=== PATIENT | male | born 1945 | race Caucasian/White ===

== ENCOUNTER → 2019-02-26 | Outpatient (CLI) | payer MEDICARE ==
[~2019-02-26] MED LIST: ASPIR 8181 MG PO; CARVEDILOL3.125 MG PO; FUROSEMIDE40 MG PO; PROAIR HFA INH8.5 GM INH; SIMVASTATIN20 MG PO
== END ==
LOC: CARD 14:38
PROVIDERS: ATTEND Thoracic Surgery (Cardiothoracic Vascular Surgery)
DX: I65.23 Occlusion and stenosis of bilateral carotid arteries (principal)
CPT/HCPCS: 93880

== ENCOUNTER → 2019-03-02 | Day surgery (SDC) | payer MEDICARE ==
--- NOTE | 2019-02-28 12:11 | Diagnostic Imaging Report ---
EXAMINATION: PA and lateral views of the chest. COMPARISON: None CLINICAL HISTORY: Preoperative exam DISCUSSION: The lungs are hyperinflated with increased AP diameter of the chest. No focal airspace consolidation, pleural effusion, or pneumothorax. Coarse reticular prominence of the pulmonary interstitium. Borderline enlargement of the cardiac silhouette with atherosclerotic calcification of the thoracic aorta. No acute osseous abnormality. IMPRESSION: Pulmonary hyperinflation compatible with COPD/emphysema. Reticular interstitial opacities likely reflect age-related fibrotic changes. Borderline cardiomegaly. Signed by: Dr. Pedro Escobar M.D. on 02/28/2019 12:08 PM
[2019-02-28 12:28] LABS: BASOPHILS # (AUTO) 0.1 (0.0-0.1); BASOPHILS % 0.7 % (0.0-1.0); EOSINOPHILS # (AUTO) 1.6 (0.0-0.4); EOSINOPHILS % 15.6 % (0.0-6.0); HEMATOCRIT 47.1 % (38.2-49.6); LYMPHOCYTES # (AUTO) 2.5 (1.0-3.2); MEAN CORPUSCULAR HEMOGLOBIN 29.2 pg (28-32); MEAN CORPUSCULAR HGB CONC 31.8 g/dL (31-35); MEAN CORPUSCULAR VOLUME 91.6 fL (81-99); MONOCYTES # (AUTO) 0.4 (0.2-0.8); MONOCYTES % 4.4 % (4.4-11.3); NEUTROPHILS # (AUTO) 5.4 (2.1-6.9); PLATELET COUNT 196 x10e3/uL (140-360); RED BLOOD COUNT 5.14 x10e6/uL (4.3-5.7); RED CELL DISTRIBUTION WIDTH 15.9 % (11.7-14.4)
[2019-02-28 12:36] LABS: INR 1.05; PROTHROMBIN TIME 14.2 seconds (11.9-14.5)
[2019-02-28 12:37] LABS: PARTIAL THROMBOPLASTIN TIME 37.9 seconds (23.8-35.5)
[2019-02-28 12:45] LABS: ANION GAP 13.2 mmol/L (8-16); CALCIUM 9.8 mg/dL (8.4-10.2); CREATININE, SERUM 1.19 mg/dL (0.72-1.25); POTASSIUM 4.2 mmol/L (3.5-5.1)
[2019-02-28 14:07] LABS: EOSINOPHILS % (MANUAL) 12 % (0-7); LYMPHOCYTES % (MANUAL) 29 % (19-48); MONOCYTES % (MANUAL) 9 % (3.4-9.0); NEUTROPHILS % (MANUAL) 50 % (40-74)
[2019-02-28 14:11] LABS: PLATELET ESTIMATE ADEQUATE; PLATELET MORPHOLOGY COMMENT NORMAL; RBC MORPHOLOGY COMMENT NORMAL
[2019-02-28 14:12] LABS: ANISOCYTOSIS SLIGHT
[~2019-03-02] MED LIST changes: +CEFAZOLIN SOD 1 GM VIAL ONE; +DEXAMETHASONE SOD PHOS INJ 4 MG/ML VIAL ONE; +FENTANYL CITRATE/PF 100MCG/2 ML INJ ONE; +LIDOCAINE HCL 2% LOCAL INJ 5 ML SDV VIAL INJ ONE; +LISINOPRIL10 MG PO; +MIDAZOLAM HCL 2 MG/2 ML VIAL ONE; +MUPIROCIN 2% OINT 22 GM TUBE ONE; +ONDANSETRON HCL INJ 2MG/ML 2ML 2 MG/ML VIAL ONE; +PHENYLEPHRINE HCL 1% 10 MG/ML VIAL ONE; +PROPOFOL IV EMULSION 10 MG/ML 20 ML VIAL ONE; +ROCURONIUM BROMIDE 10 MG/ML 5ML VIAL ONE; +SEVOFLURANE INHAL SOLN 250 ML PEN BTL ONE
--- OUTSIDE RECORDS SUMMARY | 2019-03-02 10:57 | XMS REPORT ---
Author [facility] Address Unknown Phone Unavailable Care Team Providers Care Cigar Making Supervisor Name Role Phone RAFAEL BHATIA Unavailable Unavailable Problems This patient has no known problems. Allergies, Adverse Reactions, Alerts This patient has no known allergies or adverse reactions. Medications This patient has no known medications. Results Test Description Test Time Test Comments Text Results Atomic Results Result Comments CHEST 2 VIEWS 2019-02-28 12:06:00 [place] [address] Patient Name: YULISA WILLIAMSON III MR #: [id number] : 1945 Age/Sex: 74/M Req #: [id number] Adm Physician: Ordered by: RAFAEL BHATIA MD Report #: [id number] Location: OR Room/Bed: Procedure: [id number] DX/CHEST 2 VIEWS Exam Date: Exam Time: REPORT STATUS: Signed EXAMINATION: PA and lateral views of the chest. COMPARISON: None CLINICAL HISTORY: Preoperative exam DISCUSSION: The lungs are hyperinflated with increased AP diameter of the chest. No focal airspace consolidation, pleural effusion, or pneumothorax. Coarse reticular prominence of the pulmonary interstitium. Borderline enlargement of the cardiac silhouette with atherosclerotic calcification of the thoracic aorta. No acute osseous abnormality. IMPRESSION: Pulmonary hyperinflation compatible with COPD/emphysema. Reticular interstitial opacities likely reflect age-related fibrotic changes. Borderline cardiomegaly. Signed by: Dr. Itz Alvarado M.D. on 02/28/2019 12:08 PM Dictated By: ITZ ALVARADO MD 07 Transcribed By: LEA on 02/28/191207 COPY TO: RAFAEL BHATIA MD
--- NOTE | 2019-03-02 15:48 | Diagnostic Imaging Report ---
Examination: Single AP view of the chest. COMPARISON: 02/28/2019 INDICATION: Status post mediastinoscopy DISCUSSION: Interval placement of a right internal jugular central venous catheter. The tip projects over the mid superior vena cava. The lungs remain well-inflated and with coarse reticular opacities. No new consolidation or pneumothorax. Cardiomediastinal contour is stable when accounting for differences in technique. No acute osseous abnormalities. IMPRESSION: Interval placement of right internal jugular central venous catheter, positioned as above. No pneumothorax or julio pneumomediastinum status post mediastinoscopy. Signed by: Dr. Pedro Escobar M.D. on 03/02/2019 3:44 PM
[2019-03-02 16:30] VITALS: BP 94/63
--- NOTE | 2019-03-05 16:28 | Operative Report ---
DATE OF PROCEDURE: 03/02/2019 SURGEON: Jeffry Cervantes MD PREOPERATIVE DIAGNOSES: 1. Mediastinal adenopathy. 2. Unexplained 20 lb weight loss. POSTOPERATIVE DIAGNOSES: 1. Mediastinal adenopathy. 2. Unexplained 20 lb weight loss. TITLE OF OPERATION: Cervical mediastinoscopy. DESCRIPTION OF OPERATION: After the satisfactory accomplishment of general anesthesia, the patient's neck and chest were prepped and draped in sterile fashion. A transverse incision was made just above the sternal notch. The incision was carried down through the muscles and fascia to the anterior surface of the trachea. A plane of dissection was developed on the anterior surface of the trachea, and this plane of dissection was carried distally down to the level of the edie. At this point, a mediastinoscope was introduced. Careful inspection of both the right and left carlitos revealed no impressive adenopathy and no pathology other than a very thin pleural wall. The mediastinoscope was then gently withdrawn and in the process, the tissues anterior to the trachea were carefully inspected. Several large lymph nodes were present in this tissue approximately care home between the edie and the skin incision. Several of these large lymph nodes were removed as permanent pathology specimens. All bleeding points were cauterized, ligated or oversewn. The wound was then thoroughly irrigated with antibiotic solutions and closed in layers with interrupted 2-0 Vicryl for the deep tissues and Monocryl subcuticular stitches for the skin. The patient tolerated the procedure well and was returned to the recovery room in good condition. Jeffry Cervantes MD [facility] [place]/ARETHAL /[id number]
== END | disposition home or self-care (01) ==
LOC: OR 10:54
PROVIDERS: ATTEND Thoracic Surgery (Cardiothoracic Vascular Surgery)
DX: R59.0 Localized enlarged lymph nodes (principal); D72.822 Plasmacytosis; R63.4 Abnormal weight loss; J44.9 Chronic obstructive pulmonary disease, unspecified; I11.0 Hypertensive heart disease with heart failure; I50.9 Heart failure, unspecified; E11.9 Type 2 diabetes mellitus without complications; I25.10 Atherosclerotic heart disease of native coronary artery without angina pectoris; F17.210 Nicotine dependence, cigarettes, uncomplicated; Z01.810 Encounter for preprocedural cardiovascular examination; Z01.812 Encounter for preprocedural laboratory examination; Z01.818 Encounter for other preprocedural examination; Z99.81 Dependence on supplemental oxygen; Z79.82 Long term (current) use of aspirin
CPT/HCPCS: 36415 ×2; 39402; 71045; 71046; 80048; 82948; 85025; 85610; 85730; 86850; 86900; 86920; 88305; 93005; J0690; J1100; J2001; J2250; J2370; J2405; J2704; 88304

== ENCOUNTER 2019-11-22 06:15 | Observation (INO) | payer MEDICARE ==
[2019-11-20 12:32] LABS: BASOPHILS % 0.6 % (0.0-1.0); EOSINOPHILS # (AUTO) 0.3 (0.0-0.4); EOSINOPHILS % 5.1 % (0.0-6.0); HEMATOCRIT 42.9 % (38.2-49.6); HEMOGLOBIN 13.9 g/dL (14.0-18.0); LYMPHOCYTES # (AUTO) 1.5 (1.0-3.2); LYMPHOCYTES % 29.3 % (18.0-39.1); MEAN CORPUSCULAR HEMOGLOBIN 32.5 pg (28-32); MEAN CORPUSCULAR HGB CONC 32.4 g/dL (31-35); MEAN CORPUSCULAR VOLUME 100.2 fL (81-99); MONOCYTES # (AUTO) 0.3 (0.2-0.8); MONOCYTES % 6.1 % (4.4-11.3); NEUTROPHILS % 58.5 % (38.7-80.0); PLATELET COUNT 134 x10e3/uL (140-360); RED BLOOD COUNT 4.28 x10e6/uL (4.3-5.7); RED CELL DISTRIBUTION WIDTH 14.1 % (11.7-14.4)
[2019-11-20 12:41] LABS: INR 1.09; PROTHROMBIN TIME 14.8 seconds (11.9-14.5)
[2019-11-20 12:46] LABS: ANION GAP 11.6 mmol/L (8-16); BLOOD UREA NITROGEN 18 mg/dL (7-26); BUN/CREATININE RATIO 17 (6-25); CALCIUM 8.8 mg/dL (8.4-10.2); CARBON DIOXIDE 34 mmol/L (22-29); CHLORIDE 97 mmol/L (98-107); CREATININE, SERUM 1.04 mg/dL (0.72-1.25); EST GLOMERULAR FILTRATION RATE > 60 ML/MIN (60-); GLUCOSE 94 mg/dL (74-118); POTASSIUM 3.6 mmol/L (3.5-5.1); SODIUM 139 mmol/L (136-145)
[2019-11-22] VITALS (19 sets, daily range): BP systolic 102–130; BP diastolic 58–88
[~2019-11-22] VITALS: Ht 172.7 cm; Wt 59.0 kg
[~2019-11-22 06:15] MED LIST changes: -CEFAZOLIN SOD 1 GM VIAL ONE; -DEXAMETHASONE SOD PHOS INJ 4 MG/ML VIAL ONE; -FENTANYL CITRATE/PF 100MCG/2 ML INJ ONE; -LIDOCAINE HCL 2% LOCAL INJ 5 ML SDV VIAL INJ ONE; -MIDAZOLAM HCL 2 MG/2 ML VIAL ONE; -MUPIROCIN 2% OINT 22 GM TUBE ONE; -ONDANSETRON HCL INJ 2MG/ML 2ML 2 MG/ML VIAL ONE; -PHENYLEPHRINE HCL 1% 10 MG/ML VIAL ONE; -PROPOFOL IV EMULSION 10 MG/ML 20 ML VIAL ONE; -ROCURONIUM BROMIDE 10 MG/ML 5ML VIAL ONE; -SEVOFLURANE INHAL SOLN 250 ML PEN BTL ONE; +TYLENOL WITH C1 EACH PO; +ZOLPIDEM TARTRAT5 MG PO
[2019-11-22] MEDS ORDERED: FENTANYL CITRATE/PF 100MCG/2 ML INJ ONE (07:24)
[2019-11-22] MEDS ORDERED: MIDAZOLAM HCL 2 MG/2 ML VIAL ONE ×2 (07:24→09:23)
[2019-11-22] MEDS ORDERED: SODIUM CHLORIDE 0.9% 50ML 50 ML ONE (07:25)
[2019-11-22] MEDS ORDERED: BACITRACIN 50,000 UNIT VIAL ONE (07:25)
[2019-11-22] MEDS ORDERED: CEFAZOLIN SOD 1 GM VIAL ONE (07:26)
[2019-11-22] MEDS ORDERED: LIDOCAINE HCL 2% LOCAL 20 ML VIAL ONE (07:26)
[2019-11-22] MEDS ORDERED: VANCOMYCIN 1GM/NS 250 ML 250 ML ONE (07:26)
[2019-11-22] MEDS ORDERED: SODIUM CHLORIDE 0.9% 500ML 500 ML ONE (07:26)
[2019-11-22] MEDS ORDERED: SODIUM CHLORIDE 0.9% 1000ML 2,000 ML ONE (07:26)
--- NOTE | 2019-11-22 09:50 | NUR ---
0950amRECEIVING NOTE [employer] [employer]............................................................... Bedside report received from RN. Identifierx2. Alert oriented and appropriate, PERRLA, respirations even and unlabored to room air. Pulses x4 extremities equal and strong. Pedal pulses PT/DP X4 Cap fill brisk < 3 sec. BIVAD device Tel Observation with tele-tracker bed order in place and Jessica,Rn House Supv. notified of bed necessity. Left shoulder dressing intact NO gross issues pain,pallor,pressure or dysrhythmia. Stat CXR done. Orderlord notified and will interrogate device prior to dc tomorrow am. Friend has original prescription for dc meds and will drop off to pharmacy tonight for pickup of pt in am when he arrives for pickup of Pt. Pt and significant friend inserviced on importance of sling and purpose and [facility] to discuss further in am console to be used by person at home. Skin warm and dry integrity appears D/I, IV 20g to left hand clamped, presents healthy w/o s/s of infiltration or complaint. Abdomen soft and supple. pt offered toileting, denies need to urinate or defecate. No personal affects with patient. Friend at bedside. Pt and family verbalizes understanding of POC. Currently w/o complaint of pain or need.lucas/jay jay
--- NOTE | 2019-11-22 09:55 | NUR ---
0955a Pt in CCL Rec #[address] Educated pt and Familia, significant other at bedside to keep arm in sling and take prescribed me by Md . Nurse reinforced importance to f/o with Md for recheck , Familia will fill prescribed meds and knows importance of completion of medication antibiotic. Friend took prescription to fill for him to pharmacy tonight and would like to be call 1hr prior to dc in am. lucas/rn
--- NOTE | 2019-11-22 11:11 | Diagnostic Imaging Report ---
EXAM: CHEST SINGLE (PORTABLE) DATE: 11/22/2019 10:35 AM INDICATION: Pacemaker placement COMPARISON: 03/02/2019 IMPRESSION: There has been interval placement of a left-sided ICD with subclavian coursing leads identified extending to the heart. There is no evidence for pneumothorax. The trachea is midline. The lungs are symmetrically expanded without evidence for large focal consolidation or significant pleural effusion. The cardiac silhouette remains prominent. Mediastinal contours are unremarkable. No acute osseous abnormality is identified. Signed by: Dr. Naga Cabrera MD on 11/22/2019 11:08 AM
--- NOTE | 2019-11-22 13:45 | NUR ---
3678 Pt was found by staff member sitting on side of bed with arm out of sling. Reinforced importance to keep arm in sling till prescribed time by Harry COHN. Rationale was given pt appeared to understand reinforcement. ds/rn
--- NOTE | 2019-11-22 14:00 | NUR ---
1345p reachieved room notification Phoned report to Cortes Hines. Rm 203 Tele observation per phone. 1400p Transferred via bed with all belongings as well as [place] console equipment to floor care No gross issues pain,pallor,pressure or dysrhythmia in atrial paced rhythm 1:1 stable vs and denies pain. Pt tolerating po intake,aware of importance of calling for help to ambulated to bathroom and arm sling must remain on. Left room with RN at bedside call light at bedside,bed brakes in place and bed in low position.Report given to tele-room and handoff com.
--- NOTE | 2019-11-22 14:05 | NUR ---
ARRIVED TO UNIT VIA BED. ALERT AND ORIENTED. IN NO APPARENT DISTRESS. ABLE TO MAKE NEEDS KNOWN. LEFT SHOULDER PRESSURE DRESSING CDI. HEART PACED AT 1005 1 TO 1. PATIENT CLAIMS TO NOT KNOW HIS PAST MEDICAL HISTORY OR WHAT MEDICATIONS HE TAKES DAILY, AND IS A POOR HISTORIAN. STATES HE HAS NOT HAS THE FLU OR PNEUMONIA VACC. STATES HE IS NOT HAPPY WITH HAVING TO STQAY OVERNIGHT OR BEING "TIED DOWN" WHILE IN THE HOSPITAL
[2019-11-22] MEDS ORDERED: ALBUTEROL SULFATE HFA 8GM INHALATION AEROSOL INH PRN (16:00)
[2019-11-22] MEDS ORDERED: ACETAMINOPHEN/CODEINE 300MG - 30MG TAB PO PRN (16:00)
[2019-11-22] MEDS ORDERED: FUROSEMIDE 40 MG TAB PO SCH (17:00)
[2019-11-22] MEDS ORDERED: CARVEDILOL 3.125 MG TAB PO SCH (17:00)
--- NOTE | 2019-11-22 17:50 | NUR ---
STATED HE WAS HUNGRY AND APPRECIATED THE FOOD. IN A BETTER DISPOSITION. WALKED IN ROOM WITH STANDBY ASSIST FOR SAFETY. GIVEN WARM BLANKETS AFTER THE MEAL AND NOW HE STATES HE IS HAPPIER AND FEELS BETTER. WILL CONTINUE TO MONITOR COMPLIANT WITH ARM SLING AND CALLING FOR ASSISTANCE
[2019-11-22] MEDS ORDERED: SIMVASTATIN 20 MG TAB PO SCH (21:00)
--- NOTE | 2019-11-22 23:52 | Operative Report ---
DATE OF PROCEDURE: 11/22/2019 SURGEON: Joseph Bernard MD PREPROCEDURE DIAGNOSES: 1. 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 2. Congestive heart failure, class 3. 3. Left bundle branch block. POSTPROCEDURE DIAGNOSES: 1. 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 2. Congestive heart failure, class 3. 3. Left bundle branch block. ESTIMATED BLOOD LOSS: 5 mL. COMPLICATIONS: None. PROCEDURES PERFORMED: 1. Biventricular cardiac defibrillator placement. 2. Moderate sedation. Moderate conscious sedation was provided under my direct supervision by a sedation trained nurse. Sedation approximate time 60 minutes. Versed and fentanyl. There were no complications. See sedation form for details. DESCRIPTION OF PROCEDURE: After informed consent was obtained, the patient was brought to the electrophysiology laboratory in a fasting, nonsedated state. The area over his chest was prepped and draped in the usual sterile fashion. Moderate sedation and prophylactic antibiotics were given. 1% lidocaine was used as local anesthetic and a 3-cm skin incision was made in the left subclavicular area. Electrocautery sharp and blunt dissection were used to bridge the muscular fascia and a pocket was created for event implantation of the device. Vascular access was obtained x3 in the left axillary vein using the modified Seldinger technique under fluoroscopic guidance. Three sheaths were placed. Ventricular lead advanced to the RV apex, R-wave 18, pacing 0.4 at 0.4, impedance 500. Then, coronary sinus was cannulated using AL2 catheter and Parth wire. Coronary sinus angiogram demonstrated a high lateral branch successfully cannulated. The patient's threshold there was 2.5 at 0.4. No phrenic stimulation. Then, the atrial lead to the right atrial appendage P-wave 3, pacing 0.4 at 0.4, impedance 900. Sheaths were removed from the body. Leads were secured to fascia using Ethibond. Pocket was irrigated with antibiotic solution using the pulse second vp hr assessment. Hemostasis was meticulous. Leads were connected to the device and entire ICD system placed in the pocket. Incision was closed using absorbable sutures and Dermabond. The patient tolerated the procedure well. Procedure was incomplete. Of note, we put antibiotic powder, vancomycin inside the pocket. SUMMARY OF HARDWARE IMPLANTED: 1. The new defibrillator is [employer], serial, #[id number]. 2. The atrial lead is [employer] [id number]. 3. The right ventricular lead is [employer] [id number]. 4. The left ventricular lead is [employer] [id number]. IMPRESSION: Successful biventricular cardiac defibrillator placement via left axillary vein. PLAN: 1. Routine postop monitoring on telemetry bed. 2. Chest x-ray. 3. Follow up in 2 weeks. MD CLARA Kelly/MODL /[id number]
[2019-11-23 00:12] VITALS: BP 106/67
[2019-11-23 04:00] VITALS: BP 117/72
--- NOTE | 2019-11-23 07:53 | NUR ---
Patient is asking when he is leaving the hospital. Paged Dr. Gray to see if patient will be discharging today. Waiting examination supervisor back
[2019-11-23 07:57] VITALS: BP 121/75
--- NOTE | 2019-11-23 08:00 | NUR ---
Per Dr. Gray after [employer] comes and checks the patient's device he can go home.
[2019-11-23] MEDS ORDERED: LISINOPRIL 10 MG TAB PO SCH (09:00)
[2019-11-23] MEDS ORDERED: ASPIRIN 81 MG CHEW TAB PO SCH (09:00)
--- NOTE | 2019-11-23 09:00 | NUR ---
Spoke to Vilma with [employer] , she said she was here earlier this AM and checked the device and patient is OK to continue with discharge
--- NOTE | 2019-11-23 10:30 | NUR ---
Spoke to the patient at length about f/u care and prescription. He verbalized understanding. IV to the left hand was removed with tip intact.
[2019-11-23] MEDS ORDERED: MINOCYCLINE HC100 M1 PO (10:43)
--- NOTE | 2019-11-23 11:17 | NUR ---
GUDINO letter delivered and explained to pt. He verbalized understanding. Signed copy placed in chart. Copy to pt.
== END 2019-11-23 11:21 | disposition home or self-care (01) ==
LOC: CATH LAB 06:15 → CATH LAB V 14:32 → MED/SURG2 14:38
PROVIDERS: ADMIT Internal Medicine; ATTEND Internal Medicine
DX: I42.9 Cardiomyopathy, unspecified (principal); I44.7 Left bundle-branch block, unspecified; I50.42 Chronic combined systolic (congestive) and diastolic (congestive) heart failure; E11.9 Type 2 diabetes mellitus without complications; J44.9 Chronic obstructive pulmonary disease, unspecified; I11.0 Hypertensive heart disease with heart failure; Z79.82 Long term (current) use of aspirin
CPT/HCPCS: 33225; 33249; 36415; 71045; 80048; 85025; 85610; C1769; C1777; C1882; C1887; C1898; C1900; G0378 ×2; J0690; J2001; J2250; J3010; J3370; J7030; J7040; 99152; 99153